=== PATIENT | male | born 1975 | race Caucasian/White ===

== ENCOUNTER 2020-08-21 13:15 | Emergency (ER) | payer OTHER, SELFPAY ==
[2020-08-21 13:17] VITALS: BP 150/79; PULSE 98; RESP 16; TEMP 36.2; O2SAT 98; BMI 29.7
[2020-08-21 13:19] VITALS: BP 150/79; PULSE 88; RESP 16; TEMP 36.2; O2SAT 98
--- NOTE | 2020-08-21 13:25 | ED.VIS.GEN ---
History of Present Illness Informant: Patient Narrative: 44-year-old [id number] male presents with a cat bite to his left thumb. He states he was bitten by a stray cat last night. He has 2 puncture wounds on the back of his thumb. Today it was swollen and red so he came to the ED. He still has full range of motion. Last tetanus unknown. He is not diabetic. <Radha Singleton - Last Filed: 08/21/20 13:25> <Mari Quinones - Last Filed: 08/21/20 13:33> Chief Complaint: Bite Past Medical History Past Medical History: None <Radha Singleton - Last Filed: 08/21/20 13:25> <Mari Quinones - Last Filed: 08/21/20 13:33> - Allergies and Home Meds Allergies/Adverse Reactions: Allergies No Known Allergies Allergy (Verified 08/21/20 13:19) Primary Care Physician: Maribell Paris MD [Primary Care Provider] - Review of Systems General: Denies: Chills, Fever, Sweats Eyes: Denies: Visual changes - bilaterally, Diplopia ENT: Denies: Rhinorrhea, Sore throat Cardiovascular: Denies: Chest pain, Palpitations Respiratory: Denies: Dyspnea, Cough, Dyspnea on exertion Gastrointestinal: Denies: Abdominal pain, Nausea, Vomiting, Diarrhea, Melena, Hematochezia Genitourinary: Denies: Dysuria, Hematuria, Frequency Musculoskeletal: Reports: Swelling, Extremity Pain Skin: Reports: Wounds. Denies: Rash Neurological: Denies: Headache, Weakness, Numbness <Radha Singleton - Last Filed: 08/21/20 13:25> Physical Exam Vital Signs/Narrative: Vital Signs Temp Pulse Resp BP Pulse Ox 08/21/20 13:19 97.2 F L 88 16 150/79 H 98 08/21/20 13:17 97.2 F L 98 16 150/79 H 98 General: Well nourished, Well developed, No Acute Distress Head: Normocephalic, Atraumatic Eyes: Perrl, EOMI ENT: Moist mucous membranes, No rhinorrhea Neck: Supple, Nontender Cardiovascular: Regular rate, Regular rhythm, No murmurs Respiratory: No distress, CTA bilaterally, Chest nontender Abdomen: Soft, Nontender, Nondistended, Normal bowel sounds Back: Nontender, Normal Inspection Extremities: - - Localized swelling and erythema over the base of the left thumb. 2 puncture wounds on the dorsal side of the thumb at the MCP joint where he is most tender. No fluctuance. Full range of motion. Strength and sensation intact. Cap refill less than 2 seconds. Skin: Normal color, No rash Neurological: Alert, Oriented x3, Cranial nerves II-XII grossly intact, Normal Strength, Normal Sensation Psychological: Normal affect, Normal Mood <Radha Singleton - Last Filed: 08/21/20 13:25> Vital Signs/Narrative: Vital Signs Temp Pulse Resp BP Pulse Ox 08/21/20 13:19 97.2 F L 88 16 150/79 H 98 08/21/20 13:17 97.2 F L 98 16 150/79 H 98 <Mari Quinones - Last Filed: 08/21/20 13:33> Diagnostic/Tx/Re-eval - Medical Decision Making Patient presented with cat bite of left thumb that occurred last night. He appears well and nontoxic. Vital signs within normal limits. He has 2 puncture wounds on the dorsal side of his thumb at the MCP joint with localized erythema and swelling. Neurovascularly intact. He has full range of motion. I am not concerned for tenosynovitis or deeper infection at this time. Tetanus was updated and he was given first dose of Augmentin here with a prescription for 10 days. We thoroughly discussed return precautions and he will follow-up with his PCP this week. He was discharged home in stable condition. <Radha Singleton - Last Filed: 08/21/20 13:25> - Medical Decision Making Patient seen and evaluated with physicians assistant professor of criminal justice. Patient was independently interviewed and examined. Patient presents with cat bite to the left thumb that occurred last evening. He was trying to help get a stray cat out of a basement. He is right-hand dominant. Patient sitting up in bed no acute distress. Head neck examination unremarkable. Left upper extremity examination reveals 2 focal puncture wounds near the MCP joint of the left thumb, along the medial and lateral aspects. No puncture wound directly over the extensor tendon. He has mild erythema. He has good range of motion with no palpable tenderness over the tendon itself. Wound will be cleansed and dressed. Tetanus update will be provided. He will be treated with antibiotics and given very strict instructions on monitoring his wound. I did advise him that he needs very close follow-up to ensure this is not spread to the tendon. He voices understanding and agreement. <Mari Quinones - Last Filed: 08/21/20 13:33> ED Disposition <Radha Singleton - Last Filed: 08/21/20 13:25> <Mari Quinones - Last Filed: 08/21/20 13:33> - Plan for ED Patient: Disposition: Home or Assisted Living Diagnosis: Cat bite Instructions: ED Bite Cat Prescriptions: Amox/Clavulanate Tablet [Augmentin Tablet] 875 mg PO Q12H #20 tab Prescription Printed Referrals: Maribell Paris MD [Primary Care Provider] -
[2020-08-21] MEDS: Diphth,Pertuss(Acell),Tet Vac 0.5 ML Vial IM (13:30)
[2020-08-21] MEDS: Amox/Clavulanate 875 MG Tablet PO (13:31)
== END 2020-08-21 13:52 | disposition home or self-care (01) ==
PROVIDERS: Emergency Provider Physician Assistant
DX: S60.372A Other superficial bite of left thumb, initial encounter (principal); W55.01XA Bitten by cat, initial encounter; Y93.9 Activity, unspecified; Y92.9 Unspecified place or not applicable
CPT/HCPCS: 90471; 90715; 99282